=== PATIENT | female | born 1990 | race African-American/Black ===

== ENCOUNTER 2023-02-09 18:25 | Emergency (ER) | payer MEDICAID ==
[~2023-02-09] VITALS: Ht 165.1 cm; Wt 64.0 kg
[2023-02-09 18:27] VITALS: BP 131/84
[2023-02-09] MEDS ORDERED: MED4 MT (21:55)
[2023-02-09] MEDS ORDERED: PERM60CR4 TP (21:55)
[2023-02-09] MEDS ORDERED: CETI-89 MT (21:55)
[2023-02-09] MEDS ORDERED: DIPHENHYDRAMINE 50MG CAPSULE PO ONE (22:00)
[2023-02-09] MEDS ORDERED: DEXAMETHASONE 4MG/ML 1ML VIAL IM ONE (22:00)
== END 2023-02-09 22:30 | disposition home or self-care (01) ==
LOC: ER 18:25
DX: R21 Rash and other nonspecific skin eruption (principal); F31.9 Bipolar disorder, unspecified; F20.9 Schizophrenia, unspecified
CPT/HCPCS: 96372; 99283; J1100; Q0163; Z7610

== ENCOUNTER 2024-04-23 05:08 | Emergency (ER) | payer OTHER ==
[~2024-04-23] VITALS: Ht 165.1 cm; Wt 68.0 kg
[~2024-04-23 05:08] MED LIST: CETI-89 MT; MED4 MT; PERM60CR4 TP
[2024-04-23 05:15] VITALS: O2SAT 99
[2024-04-23] MEDS: METOCLOPRAMIDE HCL 10MG/2ML VIAL IV ONE (06:19)
[2024-04-23] MEDS: LACTATED RINGERS 1,000 ML IV SCH (06:19)
[2024-04-23 06:26] LABS: EOSINOPHILS % 0.9 % (0.0-5.0); HEMATOCRIT. 39.9 % (36.0-48.0); LYMPHOCYTES % 27.8 % (20.0-50.0); MEAN CORPUSCULAR HEMOGLOBIN 27.6 pg (28.0-32.0); MEAN CORPUSCULAR HGB CONC 32.6 g/dL (31.0-37.0); MEAN CORPUSCULAR VOLUME 84.6 fL (81.0-99.0); MEAN PLATELET VOLUME 7.8 fl (7.4-10.4); MONOCYTES % 4.5 % (2.0-8.0); NEUTROPHILS % 65.8 % (40.0-76.0); PLATELET 304 x1000/uL (130-400); RED BLOOD CELL COUNT 4.72 mill/uL (4.2-5.4); RED CELL DISTRIBUTION WIDTH 13.8 % (11.6-14.6); WHITE BLOOD COUNT 9.2 x1000/uL (4.5-11.0)
[2024-04-23] MEDS: IBUPROFEN 600MG TABLET PO ONE (06:27)
[2024-04-23 06:56] LABS: HCG SCREEN NEGATIVE
[2024-04-23 06:57] LABS: ALANINE AMINOTRANSFERASE 45 IU/L (10-49); ALBUMIN 4.8 g/dL (3.2-4.8); ASPARTATE AMINOTRANSFERASE 43 IU/L (<34); BILIRUBIN TOTAL 0.2 mg/dL (0.1-1.0); CALCIUM 9.5 mg/dL (8.7-10.4); CARBON DIOXIDE 28 mEq/L (21-32); CHLORIDE 106 mEq/L (98-107); GLUCOSE 132 mg/dL (70-105); POTASSIUM 3.7 mEq/L (3.5-5.1); PROTEIN TOTAL 7.5 g/dL (6.0-8.3); SODIUM 140 mEq/L (136-145); UREA NITROGEN BLOOD 12 mg/dL (9-23)
[2024-04-23 09:53] VITALS: BP 117/75; PULSE 80; RESP 13; TEMP 98.1
[2024-04-23] MEDS: IOHEXOL-350 100 ML BOTTLE ONE (10:17)
== END 2024-04-23 11:06 | disposition home or self-care (01) ==
LOC: ER 05:08
DX: Q28.2 Arteriovenous malformation of cerebral vessels (principal); F17.200 Nicotine dependence, unspecified, uncomplicated; Z91.018 Allergy to other foods; Z91.09 Other allergy status, other than to drugs and biological substances; Z91.011 Allergy to milk products; Z98.890 Other specified postprocedural states
CPT/HCPCS: 80053; 84703; 85025; 36415; 70496; 70498; 70450; 96361; 96374; 99285; Q9967; J2765; Z7610